=== PATIENT | male | born 1955 | race Caucasian/White ===

== ENCOUNTER 2020-08-18 10:14 | Emergency (ER) | payer OTHER, SELFPAY ==
[2020-08-18 10:30] VITALS: BP 146/106; PULSE 75; RESP 18; TEMP 36.4; O2SAT 100
--- NOTE | 2020-08-18 10:31 | ED.EXTPRO ---
HPI - Extremity Problem General Chief complaint: Extremity Problem,Nontraumatic Stated complaint: knee pain Time Seen by Provider: 08/18/20 10:31 Source: patient and RN notes reviewed History of Present Illness HPI Narrative: Patient is a 64-year-old male who presents the urgent care with complaints of left knee swelling and pain. Patient states that started approximately 10 days ago and he is you have been using ice and elevating for comfort. Patient also reports of taking intermittent ibuprofen. States that he is very active miguel walking 4 miles a day. Patient states that he noticed some increased swelling and pain after a 10 mile bike ride approximately 1 week ago. Patient states that it does not hurt to bear weight but he does notice the swelling does lessen when he keeps it elevated and iced. Denies of any chest pain or shortness of breath. Denies of any falls or known trauma/injury. No other acute complaints. No acute distress noted. Patient aware of the plan of care. Some parts of this dictation were generated by voice recognition software and may contain typographical and/or grammatical inaccuracies. Related Data Home Medications Medication Instructions Recorded Confirmed simvastatin 40 mg DAILY 08/18/20 08/18/20 Allergies Allergy/AdvReac Type Severity Reaction Status Date / Time No Known Allergies Allergy Unverified 04/18/19 08:58 Review of Systems Review of Systems: Narrative: CONSTITUTIONAL: Denies fever, chills, or sweats. EYES: Denies visual changes, redness, or discharge. ENT: Denies rhinorrhea, congestion, sore throat, or otalgia. CARDIOVASCULAR: Denies chest pain, palpitations, or edema. RESPIRATORY: Denies cough or dyspnea. GASTROINTESTINAL: Denies abdominal pain, nausea, vomiting, or diarrhea. GENITOURINARY: Denies dysuria or hematuria. SKIN: Denies rash or itching. MUSCULOSKELETAL: Reports of left knee pain and swelling NEUROLOGIC: Denies headache, numbness, or weakness. All other systems reviewed are negative, except as documented in HPI. [facility] Past Medical History Medical History (Updated 08/18/20 @ 10:46 by VERONIKA Orozco) Dyslipidemia Recurrent herpes labialis Surgical History Surgical History (Updated 04/18/19 @ 08:57 by Becky Moore) H/O inguinal hernia repair left 2011 right 1960 Family History Family History (Updated 06/01/11 @ 08:44 by DOCTOR UNKNOWN) Other Hypertension Social History Social History (Updated 04/18/19 @ 09:03 by Becky Moore) Smoking status: Never smoker Second hand tobacco smoke exposure: No Additional smoking assessment comments: father smokes around pt until 10 years of age Alcohol intake: current Substance use: never Substance use type: does not use Gender identity (if verbalized by the patient): Male Comments At the time of my signature, I reviewed and agree with the nursing past medical, surgical, social, and family history. There is no relevant family history pertinent to the patient complaint. Exam Narrative: Exam Narrative: GENERAL: This is a well-nourished, well-developed patient, in no apparent distress. HEAD: normocephalic, atraumatic. EYES: PERRL. Sclera clear/white. Vision is grossly intact. EARS: External ears normal NOSE: External nose normal with no obvious nasal discharge, nares without redness, no rhinorrhea. THROAT: Mucous membranes moist NECK: Neck supple CARDIOVASCULAR: Regular rate and rhythm without murmurs, gallops, or rubs. RESPIRATORY: Clear to auscultation. Breath sounds equal bilaterally. No wheezes, rales, or rhonchi. SKIN: warm, intact with no suspicious lesions or rash, good texture and turgor. NEURO: awake, alert, and oriented to person, place and time. There were no obvious focal neurologic abnormalities. EXTREMITIES: Obvious left knee effusion without tenderness/pain. Negative drawer test. Range of motion to left lower extremity within normal limits with positive s
== END 2020-08-18 10:51 | disposition home or self-care (01) ==
PROVIDERS: Emergency Provider Nurse Practitioner Family; PCP Family Medicine
DX: M25.462 Effusion, left knee (principal); E78.5 Hyperlipidemia, unspecified
CPT/HCPCS: 99213; G0463

== ENCOUNTER → 2020-11-13 09:00 | Outpatient (CLI) | payer MEDICARE, BC, SELFPAY ==
--- NOTE | ~2020-11-13 | MR_ITS ---
EXAMINATION: MR knee LT wo con DATE: 11/13/2020 09:44 INDICATION: Left knee pain and effusion TECHNIQUE: Magnetic resonance imaging (MRI) of the left knee was performed without intravenous contra st. Sequences included coronal PD-weighted FSE, coronal PD-weighted FS FSE, sagittal T2-weighted FSE , sagittal PD-weighted FS FSE and axial PD weighted fat saturated FSE. COMPARISON: None. FINDINGS: Medial compartment: Meniscal tears including a longitudinal horizontal tear plane beginning at the free edge of the poste rior horn and progressing more peripherally along the inferior articular surface at the posterior bod y. There is also a radial tear along the inner third of the anterior body. Partial-thickness cartilag e loss with deep chondral fissuring along the anterior to central weightbearing medial femoral condyl e with small focus of subarticular edema along the medial rim. Lateral compartment: Lateral meniscus is normal. Anteroposterior oriented deep chondral fissure without degenerative subch ondral changes at the anterior weightbearing lateral femoral condyle. Patellofemoral compartment: Chondral fissuring involving approximately 50% of the cartilage thickness at the central aspect of th e medial patellar facet. Shallow chondral ulceration the central aspect of the patellar apical ridge. Deep chondral fissuring without degenerative subchondral changes at the central aspect of the trochl ear groove. Ligaments and tendons: Anterior and posterior cruciate ligaments are normal. The medial collateral ligament and fibular kimberlee ateral ligament complex are normal. The extensor mechanism is normal. The visualized medial and later al hamstring tendons as well as the iliotibial band are normal. Fluid: Large left knee joint effusion. No loose osteochondral bodies identified. Osseous/other: Separate from the previous noted small focus of subarticular edema along the medial rim of the weight bearing medial femoral condyle there is otherwise normal marrow signal. No fracture or pathologic mar row replacing process. IMPRESSION: 1. Medial collateral horizontal and radial tears of the posterior horn and body of the medial meniscu s respectively. 2. 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 Reviewed, dictated and finalized at location A. IMPRESSION: 1. Medial collateral horizontal and radial tears of the posterior horn and body of the medial meniscus respectively. 2. 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
== END ==
PROVIDERS: Visit Provider Nurse Practitioner Family
DX: M25.462 Effusion, left knee (principal); M17.12 Unilateral primary osteoarthritis, left knee; S83.242A Other tear of medial meniscus, current injury, left knee, initial encounter; X58.XXXA Exposure to other specified factors, initial encounter
CPT/HCPCS: 73721

== ENCOUNTER 2020-12-28 00:37 | Day surgery (SDC) | payer MEDICARE, BC, SELFPAY ==
[2020-12-23 09:49] VITALS: BMI 27.1
--- NOTE | 2020-12-27 18:12 | WPDANESEPPF ---
Anes - Initial Pre Proc Eval Procedure: Operation Date: 12/28/20 07:30 Proposed Procedures p Left Knee Arthroscopy, Debride Meniscus, Chondroplasty, Proceed As Indicated - Timothy Pimentel MD Date/Time: 12/27/20 18:12 Surgeon: Timothy Pimentel MD Pre Op Diagnosis: left knee pain, left medial meniscus tear Patient Data Age: 65 Gender: M Height: 1.78 m Weight: 86 kg Allergies Allergy/AdvReac Type Severity Reaction Status Date / Time No Known Allergies Allergy Verified 12/23/20 09:46 Home Medications Medication Instructions Recorded Confirmed Type simvastatin 40 mg tablet 40 mg PO QHS #90 tablet 12/10/20 12/23/20 Rx lisinopril-hydrochlorothiazide 1 tablet PO QAM 12/23/20 12/23/20 History multivitamin [Multiple Vitamins] 1 tablet PO DAILY 12/23/20 12/23/20 History Patient hx anesthesia problems: none Family hx anesthesia problems: none Results Review: All pre-operative results and documents have been reviewed as part of the pre-operative evaluation. [facility] Past Medical History Medical History Chondromalacia, knee Dyslipidemia Effusion, left knee Essential (primary) hypertension Left knee DJD Left knee pain Medial meniscus tear Recurrent herpes labialis Surgical History Surgical History H/O inguinal hernia repair left 2012 right 196 Family History Family History Other Hypertension Social History Social History Smoking status: Never smoker Second hand tobacco smoke exposure: No Additional smoking assessment comments: father smokes around pt until 10 years of age Alcohol intake: current Drinks per week: 21 Alcohol use details: 3 DRINKS/DAY, HARD LIQUOR/WINE Substance use: never Substance use type: does not use Living arrangements: with family Additional living arrangements comments: Gender identity (if verbalized by the patient): Male Spiritual care concerns: No Anes - Eval Final PreProcedure Day of Procedure 12/27/20 18:12 Patient weight: overweight Heart: regular rate and rhythm Lungs: clear to auscultation and normal air movement Airway: Mallampati scale class II Neurological: alert and oriented Last oral intake: >/= 8 hours ASA classification: III Emergent: no Anesthetic plan: proceed Anesthesia type and monitoring: general LMA and standard monitoring Results Review: All pre-operative results and documents have been reviewed as part of the pre-operative evaluation. Informed Consent: The patient's anesthetic plan and its attendant risks and benefits were discussed with the patient/family/POA. Questions were solicited and answers provided to the satisfaction of the patient/family/POA.
[2020-12-28] VITALS (8 sets, daily range): BP systolic 111–146; BP diastolic 74–98; PULSE 61–78; RESP 10–18; TEMP 36.1; O2SAT 97–100
[2020-12-28] MEDS: LACTATED RINGERS 1,000 ML 30 ML IV CONT (06:30)
[2020-12-28] MEDS: ACETAMINOPHEN 500 MG TABLET 1000 MG PO (06:37)
[2020-12-28] MEDS: KETOROLAC 15 MG/ML VIAL (*BKC) IV PUSH (06:38)
--- NOTE | 2020-12-28 06:56 | WPDHPUPDATE1 ---
History and Physical Update Update Date/Time: 12/28/20 06:56 History and Physical has been reviewed, including an updated exam of the patient. There are NO changes in the patient's condition. Risks, benefits, and alternatives have been discussed and questions answered. Patient agrees to proceed with procedure.
[2020-12-28] MEDS: ceFAZolin 2 GM/D5W 50 ML 2 GM/50 ML BAG IVPB (07:30)
[2020-12-28] MEDS: BUPIVACAINE HCL 0.5% PF 30 ML VIAL INFILTRATE (07:47)
--- NOTE | 2020-12-28 08:40 | W.PM.PROC2 ---
Procedure Note - Detailed Date of Procedure 12/28/20 Pre-op Diagnosis left knee pain, left medial meniscus tear Post-op Diagnosis other (Medial meniscus tear, lateral meniscus tear, grade 4 chondromalacia patellofemoral joint, grade 3 chondromalacia medial femoral condyle.) Procedure Performed Left knee arthroscopy with partial medial and lateral meniscectomy, chondroplasty Surgeon Timothy Pimentel MD Anesthesia general Indications 65-year-old gentleman with left knee pain. MRI findings of medial meniscus tear and degenerative changes. Patient failed non operative treatment with therapy, home exercises, activity modifications and anti-inflammatories. Pain on a daily basis with weight-bearing activity. Presents now for operative treatment. Findings Left knee posterior horn and middle portion medial meniscus tear, complex. Lateral meniscus tear of the posterior lateral corner. Grade 4 chondromalacia of the femoral trochlea with grade 3 chondromalacia of the patella. Grade 3 chondromalacia medial femoral condyle. Grade 1 chondromalacia lateral femoral condyle. ACL and PCL intact. Description of Procedure Informed consent given by patient. Operative extremity marked in preoperative holding area. Patient received intravenous antibiotics. Patient brought to operating room and underwent general anesthetic by anesthesia team. Positioned supine on operating room table. Left leg placed into a posterior thigh leg freeman. Foot of the table dropped to 90? and right leg padded out of the field. Time-out performed confirming patient, site of surgery and plan. Left knee prepped and draped in usual sterile surgical fashion using ChloraPrep skin solution. Standard arthroscopic portals made by using a 11 blade knife for the anterior lateral portal 1st. Capsule penetrated bluntly. Camera and inflow started. The below operative findings noted. Intra-articular visualization used to position the anterior medial portal using 22 gauge spinal needle. A 11 blade knife used for the skin and blunt penetration of the capsule. 4.7 millimeter arthroscopic shaver introduced and partial medial meniscectomy of the loose and torn portion performed. Shaver then positioned in the lateral compartment and partial lateral meniscectomy performed. Edge of meniscus completed with arthroscopic Wand. Arthroscopic Wand used to perform chondroplasty of the patellofemoral articulation and the medial femoral condyle. Shaver reintroduced and a synovectomy performed of the anterior fat pad and extensive synovium as well as medial and lateral plica. Bleeding points coagulated with Wand. Knee inspected, no loose pieces noted. 1 liter of irrigant infused and suction out. Arthroscopic cannulas removed. Skin closed with 4 nylon interrupted suture. Local anesthetic with 0.25% Marcaine. Sterile dressing applied. Patient awoken from anesthesia, extubated and taken to recovery room in stable condition. All sponge needle and instrument counts correct at the end of the case. Estimated Blood Loss 5 Tourniquet Time 0 Drains No Packing No Pathology none sent Complications None Condition stable Disposition PACU
== END 2020-12-28 10:25 | disposition home or self-care (01) ==
PROVIDERS: PCP Family Medicine; Visit Provider Orthopaedic Surgery
PROC: (CPT 29870; principal; 2020-12-28 07:30)
DX: S83.232A Complex tear of medial meniscus, current injury, left knee, initial encounter (principal); S83.282A Other tear of lateral meniscus, current injury, left knee, initial encounter; M22.42 Chondromalacia patellae, left knee; M67.52 Plica syndrome, left knee; I10 Essential (primary) hypertension; E78.5 Hyperlipidemia, unspecified; E66.3 Overweight; Z68.27 Body mass index [BMI] 27.0-27.9, adult; X58.XXXA Exposure to other specified factors, initial encounter; Y93.55 Activity, bike riding; Y92.9 Unspecified place or not applicable; Y99.9 Unspecified external cause status
CPT/HCPCS: 29880; A9270; J0690; J1885; J2405; J2704; J3010; J7120

== ENCOUNTER 2021-03-16 01:02 | Day surgery (SDC) | payer MEDICARE, BC, SELFPAY ==
[2021-03-01 13:49] VITALS: BMI 26.5
[2021-03-16 09:11] VITALS: BP 127/90; PULSE 88; RESP 18; TEMP 35.9; O2SAT 98
[2021-03-16] MEDS: LACTATED RINGERS 1,000 ML 150 ML IV CONT ×2 (09:15→10:25)
--- NOTE | 2021-03-16 09:17 | WPDANESEPPF ---
Anes - Initial Pre Proc Eval Procedure: Operation Date: 03/16/21 10:30 Proposed Procedures p Screening Colonoscopy - Bennett Bryant MD Date/Time: 03/16/21 09:17 Surgeon: Bennett Bryant MD Pre Op Diagnosis: neoplasm screening Patient Data Age: 65 Gender: M Height: 1.78 m Weight: 85.1 kg Last Vital Signs Temp 35.9 C L 03/16/21 09:11 Pulse 88 03/16/21 09:11 Resp 18 03/16/21 09:11 BP 127/90 03/16/21 09:11 Pulse Ox 98 03/16/21 09:11 Allergies Allergy/AdvReac Type Severity Reaction Status Date / Time No Known Allergies Allergy Verified 03/16/21 09:10 Home Medications Medication Instructions Recorded Confirmed Type multivitamin [Multiple Vitamins] 1 tablet PO DAILY 12/23/20 03/16/21 History lisinopril 20 1 tablet PO QAM #90 tablet 02/03/21 03/16/21 Rx mg-hydrochlorothiazide 12.5 mg tablet simvastatin 40 mg tablet 40 mg PO QHS #90 tablet 02/03/21 03/16/21 Rx Patient hx anesthesia problems: none Family hx anesthesia problems: none Results Review: All pre-operative results and documents have been reviewed as part of the pre-operative evaluation. [facility] Past Medical History Medical History Chondromalacia, knee Dyslipidemia Essential (primary) hypertension Left knee pain Medial meniscus tear Recurrent herpes labialis Surgical History Surgical History H/O inguinal hernia repair left 2011 right 1960 History of left knee surgery 12/2020 - medial meniscus repair Family History Family History Other Hypertension Social History Social History Smoking status: Never smoker Second hand tobacco smoke exposure: No Additional smoking assessment comments: father smokes around pt until 10 years of age Alcohol intake: current Drinks per week: 12 Alcohol use details: 3 DRINKS/DAY, HARD LIQUOR/WINE Substance use: never Substance use type: does not use Living arrangements: with family Additional living arrangements comments: Gender identity (if verbalized by the patient): Male Spiritual care concerns: No Anes - Eval Final PreProcedure Day of Procedure 03/16/21 09:17 Patient weight: overweight Heart: regular rate and rhythm Lungs: clear to auscultation Airway: Mallampati scale class II Neurological: alert and oriented Last oral intake: >/= 8 hours ASA classification: III Emergent: no Anesthetic plan: proceed Anesthesia type and monitoring: general GIVS and standard monitoring Results Review: All pre-operative results and documents have been reviewed as part of the pre-operative evaluation. Informed Consent: The patient's anesthetic plan and its attendant risks and benefits were discussed with the patient/family/POA. Questions were solicited and answers provided to the satisfaction of the patient/family/POA.
--- NOTE | 2021-03-16 09:54 | P.CONGI_ITS ---
Assessment and Plan Assessment and plan (1) Encounter for screening colonoscopy: Code(s): Z12.11 - Encounter for screening for malignant neoplasm of colon Status: Acute Assessment and Plan: Patient presents for screening colonoscopy. Appears to be at average risk for colon polyps. GI Consult Note Consult date/time: 03/16/21 09:54 HPI: Elgin Saavedra is a 65 year old male Presents for screening colonoscopy. Patient's current weight appetite and bowel movements are normal. He denies abdominal pain. He has had no bleeding. Family history is noncontributory. His last colonoscopy 12 years ago was unremarkable. Presents today for neoplasia screening. Review of Systems Review of Systems: All systems reviewed & are unremarkable except as noted in HPI and below PMFSH Past Medical History Medical History Chondromalacia, knee Dyslipidemia Essential (primary) hypertension Left knee pain Medial meniscus tear Recurrent herpes labialis Surgical History Surgical History H/O inguinal hernia repair left 2012 right 1960 History of left knee surgery 12/2020 - medial meniscus repair Family History Family History Other Hypertension Social History Social History Smoking status: Never smoker Second hand tobacco smoke exposure: No Additional smoking assessment comments: father smokes around pt until 10 years of age Alcohol intake: current Drinks per week: 12 Alcohol use details: 3 DRINKS/DAY, HARD LIQUOR/WINE Substance use: never Substance use type: does not use Living arrangements: with family Additional living arrangements comments: Gender identity (if verbalized by the patient): Male Spiritual care concerns: No Meds Home Medications and Allergies Home Medications Medication Instructions Recorded Confirmed Type multivitamin [Multiple Vitamins] 1 tablet PO DAILY 12/23/20 03/16/21 History lisinopril 20 1 tablet PO QAM #90 tablet 02/03/21 03/16/21 Rx mg-hydrochlorothiazide 12.5 mg tablet simvastatin 40 mg tablet 40 mg PO QHS #90 tablet 02/03/21 03/16/21 Rx Allergies Allergy/AdvReac Type Severity Reaction Status Date / Time No Known Allergies Allergy Verified 03/16/21 09:10 Vital Signs Vital Signs - 24 hr 03/16/21 09:11 Temperature 96.6 F L Pulse Rate 88 Respiratory Rate 18 Blood Pressure 127/90 Pulse Oximetry 98 Exam Narrative: Physical exam reveals patient to be alert. Vital signs stable. HEENT exam is unremarkable. Patient is anicteric. Lungs are clear to auscultation and percussion. Heart is without murmur or extra sounds. Abdominal exam bowel sounds are present soft nontender with no hepatosplenomeg agustin. Digital external rectal exam is normal.
[2021-03-16 10:45] VITALS: BP 102/72; PULSE 66; RESP 14; O2SAT 98
[2021-03-16 10:55] VITALS: BP 110/74; PULSE 67; RESP 13; O2SAT 99
[2021-03-16 11:05] VITALS: BP 127/88; PULSE 66; RESP 17; O2SAT 99
== END 2021-03-16 11:17 | disposition home or self-care (01) ==
PROVIDERS: PCP Family Medicine; Visit Provider Internal Medicine Gastroenterology
PROC: 0DJD8ZZ Inspection of Lower Intestinal Tract, Via Natural or Artificial Opening Endoscopic (ICD-10-PCS; CPT 45378; principal; 2021-03-16 10:30)
DX: Z12.11 Encounter for screening for malignant neoplasm of colon (principal); D12.5 Benign neoplasm of sigmoid colon; K64.8 Other hemorrhoids; K57.30 Diverticulosis of large intestine without perforation or abscess without bleeding; E78.5 Hyperlipidemia, unspecified
CPT/HCPCS: 45385; 88305; J2704; J7120

== ENCOUNTER 2023-02-10 09:28 | Outpatient (CLI) | payer MEDICARE, SELFPAY ==
[2023-02-10 11:57] LABS: Basophils Percent Auto 0.6 % (0.2-1.2); Eosinophils Absolute Auto 0.1 K/mm3 (0-0.3); Eosinophils Percent Auto 1.9 % (0-4.4); Hemoglobin 13.2 g/dL (14.0-18.0); Immature Granulocyte Absolute 0.01 K/mm3 (0.00-0.031); Immature Granulocyte Percent A 0.2 % (0-0.5); Lymphocytes Absolute Auto 1.49 K/mm3 (0.9-3.2); Lymphocytes Percent Auto 31.8 % (18.3-44.2); Mean Corpuscular Hemoglobin 32.8 pg (26-34); Mean Corpuscular Volume 99.3 fl (80-100); Mean Platelet Volume 10.6 fl (7.4-10.4); Monocytes Absolute Auto 0.5 K/mm3 (0.1-0.6); Monocytes Percent Auto 10.7 % (2.6-8.5); Neutrophils Absolute Auto 2.6 K/mm3 (1.3-6.7); Neutrophils Percent Auto 54.8 % (45.5-73.1); Platelet Count Result 231 k/mm3 (150-375); Red Blood Count 4.03 M/mm3 (4.6-6.20); Red Cell Distribution Width 12.2 % (11.5-14.5); White Blood Count 4.7 K/mm3 (4.5-10.0)
[2023-02-10 12:25] LABS: Alanine Aminotransferase 19 U/L (6-50); Albumin Level 4.1 g/dL (3.5-5.1); Alkaline Phosphatase 84 U/L (38-126); Anion Gap 6 mmol/L (8-16); Aspartate Amino Transferase 43 U/L (17-59); Bilirubin,Total 0.8 mg/dL (0.2-1.3); Blood Urea Nitrogen 23 mg/dL (9-20); Calcium 9.2 mg/dL (8.4-10.2); Carbon Dioxide 28 mmol/L (22-30); Chloride 103 mmol/L (98-107); Cholesterol 192 mg/dL (0-200); Estimated Glomerular Filt Rate > 60; Glucose 105 mg/dL (65-110); HDL Direct 66 mg/dL; Sodium 137 mmol/L (137-145); Triglycerides 77 mg/dL (<150)
[2023-02-10 12:38] LABS: LDL Cholesterol Direct 92 mg/dL
[2023-02-10 12:39] LABS: Vitamin D 25 Hydroxy 34.5 ng/mL
[2023-02-10 12:58] LABS: Prostate Specific Antigen 0.2 ng/mL (< OR = 4.0)
[2023-02-10 13:24] LABS: Hemoglobin A1C 5.4 % (<5.7)
== END 2023-02-10 09:29 | disposition home or self-care (01) ==
LOC: ANHGOSHLAB 09:29
PROVIDERS: PCP Family Medicine; Visit Provider Nurse Practitioner Family
DX: I65.21 Occlusion and stenosis of right carotid artery (principal); R73.03 Prediabetes; Z12.5 Encounter for screening for malignant neoplasm of prostate; E78.5 Hyperlipidemia, unspecified; I10 Essential (primary) hypertension; Z00.00 Encounter for general adult medical examination without abnormal findings; Z13.29 Encounter for screening for other suspected endocrine disorder; E55.9 Vitamin D deficiency, unspecified
CPT/HCPCS: 36415; 80053; 80061; 82306; 83036; 84153; 84443; 85025; G0103